=== PATIENT | female | born 1985 ===

== ENCOUNTER 2016-11-15 08:49 | Inpatient (IN) | payer OTHER ==
[2016-11-15] MEDS ORDERED: Sodium Citrate/Citric Acid 15 ml Sol PO ONE (09:54)
--- NOTE | 2016-11-15 10:15 | OBADHP ---
Datetime: 11/15/2016 10:01 IP Chief Complaint Other: 31 P2 at 37 weeks Gestation with vaginal bleeding . No uterine contraction s. NoLOF. Statest good movement. 2 previous C/Sections scheduled for Repeat C/Sections BTL on . GDMA1. IP Adm Impression Other: Vaginal bleeding Admit Comment, IP Provider: 37 weeks with Vaginal bleeding, 2 Previous C/Sections. Admit for Repeat C/Section and BTL. Patient had full breakfast at 0730. Reassuring fatal status. Will perform C/Sectio n at about 1330 as per Anesthiologist. Addendum: H7P same as per WILBER. Pelvic Type - PN: Adequate Extremities - PN: Normal Abdomen - PN: Normal Back - PN: Normal Breast - PN: Not Done Lungs - PN: Normal Heart - PN: Normal Thyroid - PN: Not Done Neurologic - PN: Not Done HEENT - PN: Not Done General - PN: Normal Weight - Estimated: 3200 Presentation-Admit: Vertex IP Fetus A Comments: Minimal vaginal bleeding on SSE. FHR - Baseline A Provider: 150 Membranes, Provider: Intact Gestation - Est Wks by US: 37.0 Vital Signs Provider: Reviewed; Within Normal Limits IP Chief Complaint: Vaginal bleeding NICHD Variability Prov Fetus A: Moderate 6-25bpm NICHD Accel Fetus A IP Provider: 15X15 FHR Category Provider Fetus A: Category I NICHD Decel Fetus A IP Provider: None Dilatation, Provider: 0 Effacement, Provider: 0 Station, Provider: -2 Genitourinary Exam: Normal DTRs - PN: Normal EGA AdmitDate IP: 37.2 IP Adm Impression: Term, intrauterine ; No Active Labor; Intact Membranes IP Admit Plan: Admit to unit; Initiate Section protocol
[2016-11-15 10:30] LABS: BASO % 0.2 % (0.0-2.0); EOS # 0.1 K/uL (0.0-0.7); EOS % 0.8 % (0.0-4.0); HEMATOCRIT 37.9 % (34.0-47.0); LYMPH # 1.4 K/uL (1.0-4.3); MEAN CELL VOLUME 87.4 fL (81.0-99.0); MEAN CORPUSCULAR HEMOGLOBIN 28.8 pg (27.0-31.0); MEAN CORPUSCULAR HGB CONC 32.9 g/dL (33.0-37.0); MEAN PLATELET VOLUME 9.7 fL (7.2-11.7); MONO # 0.5 K/uL (0.0-0.8); MONO % 5.9 % (0.0-10.0); RED CELL DISTRIBUTION WIDTH 14.1 % (11.5-14.5); WHITE BLOOD COUNT 7.7 K/uL (4.8-10.8)
[2016-11-15] MEDS ORDERED: Morphine 1 mg/ml preservative-free Inj(Duramorph) ONE (10:34)
[2016-11-15 10:45] LABS: GFR AFRICAN-AMERICAN > 60
[2016-11-15 10:46] LABS: GLUCOSE,RANDOM 102 mg/dL (65-105)
[2016-11-15 10:52] LABS: URINE BACTERIA RARE (<OCC); URINE BILIRUBIN NEGATIVE (NEGATIVE); URINE BLOOD 2+ (NEGATIVE); URINE COLOR Yellow (YELLOW); URINE GLUCOSE (UA) NORMAL (Normal); URINE KETONE NEGATIVE (NEGATIVE); URINE LEUKOCYTE ESTERASE NEG Leu/uL (Negative); URINE PROTEIN NEGATIVE (NEGATIVE); URINE UROBILINOGEN NORMAL mg/dL (0.2-1.0); WBC URINE 2 /hpf (0-5)
[2016-11-15 10:59] LABS: RBC URINE 10 /hpf (0-3)
[2016-11-15] MEDS ORDERED: cefOXitin IV 2 gm in Dextrose 50 ML IVPB ONE ×2 (11:19→13:00)
[2016-11-15] MEDS ORDERED: Sodium Citrate/Citric Acid 15 ml Sol ONE (11:20)
[2016-11-15] MEDS: Lactated Ringer's 1,000 ML IV SCH ×2 (11:21→11:22)
[2016-11-15] MEDS ORDERED: ePHEDrine 50 mg/ml Inj ONE (12:20)
[2016-11-15] MEDS ORDERED: DiphenhydrAMINE 50 mg/ml Inj ONE (13:14)
--- NOTE | 2016-11-15 13:23 | OBDS ---
DELIVERY PERSONNEL Delivery Doctor: Marta Shirley MD Scrub Nurse: Francine Santa OBT Baggage Inspector: Rhoda Flores RN Anesthesiologist: Jeovany Bai MD MATERNAL INFORMATION Delivery Anesthesia: Spinal Placenta Cultured: Yes Maternal Complications: None Provider Comments: Repeat Low Transverse C/Section with BTL with delivery of a viable girl, 's 05/01. LABOR SUMMARY EDC: 12/04/2016 00:00 No. Babies in Womb: 1 Attempted: No Labor Anesthesia: None LABOR INFORMATION Oxytocin: N/A Group B Beta Strep: Negative Antibiotics # of Doses: 0 Steroids Given: None Reason Steroids Not Administered: Not Applicable MEMBRANES Membranes Rupture Method: Artificial Rupture of Membranes: 11/15/2016 12:24 Length of Rupture (hrs): 0.02 Amniotic Fluid Color: Clear Amniotic Fluid Amount: None Amniotic Fluid Odor: None STAGES OF LABOR Stage 3 hrs: 0 Stage 3 min: 2 CSECTION DELIVERY Primary Indication: Repeat Elective Other Primary Indication: vaginal bleeding Secondary Indication: Other Other Secondary Indication: tach CSection Urgency: Elective CSection Incidence: Repeat Labor: N/A Elective: Elective CSection Incision: Lower Uterine Transverse Other Sterilization Procedure: cut tubes and sent to lab BABY A INFORMATION Infant Delivery Date/Time: 11/15/2016 12:25 Method of Delivery: Born in Route : No : N/A Forceps: N/A Vacuum Extraction: N/A Shoulder Dystocia : No SHOULDER DYSTOCIA BABY A Infant Delivery Date/Time: 11/15/2016 12:25 PRESENTATION/POSITION BABY A Presentation: Cephalic Cephalic Presentation: Vertex Breech Presentation: N/A PLACENTA INFORMATION BABY A Placenta Delivery Time : 11/15/2016 12:27 Placenta Method of Delivery: Manual Removal Placenta Status: Delivered SCORES BABY A Heart Rate 1 min: >100 bpm Resp Effort 1 min: Good Cry Reflex Irritability 1 min: Cough or Sneeze or Pulls Away Muscle Tone 1 min: Active Motion Color 1 min: Body [place], Extremities Blue Resuscitation Effort 1 min: Tactile Stimulation SCORE 1 MIN: 9 Heart Rate 5 min: >100 bpm Resp Effort 5 min: Good Cry Reflex Irritability 5 min: Cough or Sneeze or Pulls Away Muscle Tone 5 min: Active Motion Color 5 min: Body [place], Extremities Blue Resuscitation Effort 5 min: Tactile Stimulation SCORE 5 MIN: 9 INFORMATION BABY A Gestational Age at Delivery: 38.3 Gestational Status: Term Infant Outcome : Liveborn Condition : Stable Sex: Female IDENTIFICATION/MEDS BABY A ID Band Number: [id number] ID Band Location: Right Leg; Right Arm Sensor Applied: Yes Sensor Number: [id number] Sensor Location : Cord Clamp WEIGHT/LENGTH BABY A Infant Birthweight (gms): 3650 Infant Weight (lb): 8 Weight (oz): 1 Length Inches: 20.00 Length cms: 50.8 CORD INFORMATION BABY A No. Cord Vessels: 3 Nuchal Cord : N/A Cord Blood Taken: Yes Infant Suction: Mouth; Nose
[2016-11-16] MEDS: Oxycodone/Acetaminophen 5/325 mg Tab PO PRN ×5 (04:15→23:33)
--- NOTE | 2016-11-16 08:21 | OP ---
PROCEDURE DATE: 11/15/2016 PREOPERATIVE DIAGNOSES: 37 weeks gestation, gestational diabetes, 2 previous sections and vaginal bleeding and also sterilization. POSTOPERATIVE DIAGNOSES: 37 weeks gestation, gestational diabetes, 2 previous sections and vaginal bleeding and also sterilization. PROCEDURE: Repeat low transverse section and bilateral tubal ligation using the Chase's procedure. SURGEON: Mohinder Shirley MD MAP PLOTTER: Chaz De Souza MD, who was needed for retraction and was present throughout the entire procedure. ANESTHESIA: Spinal given by Dr. Bah. FINDINGS: A viable girl delivered at 12:25. scores were 9 at 1 minute and 9 at 5 minutes. The weight was 3650 grams. The ovaries, fallopian tubes, and uterus were all normal. DESCRIPTION OF PROCEDURE: Under adequate spinal anesthesia, the abdomen was prepped and draped in the usual sterile fashion. Going through a previous Pfannenstiel scar, the skin was incised and carried through the subcutaneous tissues to the fascia. The fascia was divided transversely and dissected off the underlying rectus muscle. The rectus muscle was in the midline. The parietal peritoneum was entered sharply. The abdomen was entered. The bladder was retracted using the [place] retractor. The vesicouterine peritoneal fold was incised and dissected off the lower uterine segment. The lower segment was incised with a scalpel and extended with bandage scissors. The fetus was delivered cephalic. The cord was clamped, transected, and the baby handed over to the apartment groundskeeper in attendance. The placenta was delivered spontaneously. The uterus was then delivered into the incision. The uterine cavity was grasped with T clamps for hemostasis. The uterine cavity was then approximated in 2 layers with 0 Vicryl suture. Hemostasis was achieved. Attention was turned to the fallopian tubes. First, the right fallopian tube was identified and followed to the fimbriated end. The midsegment was elevated with a Reba clamp and doubly ligated with 2-0 plain catgut. The segment between the ligature was excised and submitted to pathology. The same procedure was repeated on the left fallopian tube. The uterus was then returned into the abdominal cavity. The abdomen was copiously irrigated with saline. Again, hemostasis was noted. The abdomen was then closed in layers with 0 chromic catgut to the peritoneum and 0 chromic catgut to the rectus muscle in the midline. The rectus fascia was approximated with 0 Vicryl suture in a continuous fashion. The subcutaneous tissues were approximated with 2-0 plain catgut. The skin was closed using 4-0 Monocryl subcuticular suture. The estimated blood loss was about 600 mL. Fluids received were 1500 mL crystallized. The urine output was about 300, clear. The sponge, instrument and needle counts were correct x 3. The specimen was segments of both fallopian tubes to pathology. The patient was transferred from the operating room to the recovery room in good condition. Mohinder Shirley MD cc: [id number] TT: 11/16/2016 08:20:51 en MTDD
[2016-11-16 08:24] LABS: BASO % 0.2 % (0.0-2.0); EOS % 0.2 % (0.0-4.0); HEMATOCRIT 37.1 % (34.0-47.0); LYMPH # 1.2 K/uL (1.0-4.3); MEAN CELL VOLUME 88.5 fL (81.0-99.0); MEAN CORPUSCULAR HEMOGLOBIN 28.7 pg (27.0-31.0); MEAN CORPUSCULAR HGB CONC 32.4 g/dL (33.0-37.0); MEAN PLATELET VOLUME 9.5 fL (7.2-11.7); MONO # 0.5 K/uL (0.0-0.8); MONO % 3.5 % (0.0-10.0); PLATELET COUNT 272 K/uL (130-400); RED CELL DISTRIBUTION WIDTH 14.7 % (11.5-14.5)
[2016-11-16 08:43] LABS: WHITE BLOOD COUNT 15.6 K/uL (4.8-10.8)
[2016-11-16 09:25] LABS: EOSINOPHIL 1 % (0-4); NEUTROPHIL 89 % (50-75); TOTAL CELLS COUNTED 100
[2016-11-16] MEDS ORDERED: Bisacodyl 5mg EC Tab PO ONE (14:00)
--- NOTE | 2016-11-16 18:37 | OBPPN ---
Datetime: 11/16/2016 11:40 PP Pain Prov: Within normal limits PP Nausea Prov: Denies PP Flatus Prov: No PP BM Prov: No PP Breasts Prov: Normal PP Heart Prov: Normal PP Lungs Prov: Normal PP Abdomen/Uterus Prov: Normal PP Lochia Prov: Normal PP Vulva/Perineum Prov: Not Done PP CVA Tenderness Prov: Normal PP Extremities Prov: Normal PP C/S Incision Prov: Normal PP Progress Prov: Not Applicable PP Comments Phys Exam Prov: Skin: warm, dry, intact HEENT: full ROM Back: (+) point tenderness over right trapezius muscle and over right scapular muscle. Breasts: symmetric; no masses Abdomen: Soft, non distended. (+) ABS. fundus firm, mobile, mild and appropriately tender, 1 FB be low umbilicus. Incision with subcuticular closure - clean, dry and intact. Mild to moderate lochia ru bra Extremities: no calf tenderness; 1+ ankle and pedal edema All other systems reviewed - per HPI PP Impression Prov: Normal progression PP Plan Prov: Continue present management PP Progress Note Prov: Patient received sitting up in bed, room 459. C/O right shoulder pain, since delivery; pain scale 7/10 - minimal relief with percocet. Denies nausea, vomiting; ambulating and voi ding without difficulty. Not at this time; considering starting when she gets home. (+) incisional pain, pain scale 8/01 - again, minimal arelief with percocet. Not yet taken motrin P.E.: as above. WD in NAD. Awake, alert, oriented to time, person and place. Pleasant and cooperat bernice. present - POD#1 H/H 12.0/37.1 Assessment: POD#1, 31 y.o. P3, S/P repeat LTCS with BTL. Afebrile, vital signs stable. Right shoul lola pain - most likely musculoskeletal in origin; as well as probable diaphragmatic irritation from a ir due to open procedure. Pateitn counseled as follows: 1) warm shower, now, followed by cold johnny s TID, 30 minutes each; 2) overlap motrin with percocet. Patient encouraged to ambulate in the [facility]. Patient is clinically stable. Plan: 1) as above. Vital Signs Provider PP: Reviewed; Within Normal Limits
[2016-11-17] MEDS: Oxycodone/Acetaminophen 5/325 mg Tab PO PRN ×4 (03:16→19:34)
--- NOTE | 2016-11-17 09:08 | OBPPN ---
Datetime: 11/17/2016 09:05 PP Pain Prov: Within normal limits PP Nausea Prov: Denies PP Flatus Prov: Yes PP BM Prov: No PP Heart Prov: Normal PP Lungs Prov: Normal PP Abdomen/Uterus Prov: Normal PP Lochia Prov: Normal PP Vulva/Perineum Prov: Normal PP CVA Tenderness Prov: Normal PP Extremities Prov: Normal PP C/S Incision Prov: Normal PP Progress Prov: Normal PP Impression Prov: Normal progression PP Plan Prov: Continue present management PP Progress Note Prov: S-patient reports that he rpain is well controlled.denies nausea, vomiting, h eadache, chest pain, shortness of breath, numbness or tingling in hands and feet O-VSS Afebrile Fundus firm and below umbilcius Inicsion clean dry and intact extremities no calf tenderness A/P Patient s/p vaginal delivery POD 2doing well -continue routine post op care -anticipate dischareg tomorrow -follow up in clinic in 6 weeks Vital Signs Provider PP: Reviewed; Within Normal Limits
[2016-11-18] MEDS: Oxycodone/Acetaminophen 5/325 mg Tab PO PRN ×2 (03:37→09:53)
--- NOTE | 2016-11-18 07:30 | CP.PCM.DIS ---
Provider - Provider Date of Admission: 11/15/16 09:49 Attending physician: Mohinder Shirley MD Time Spent in preparation of Discharge (in minutes): 50 Diagnosis - Discharge Diagnosis (1) Delivered by section Status: Acute Hospital Course - Lab Results Lab Results: Most Recent Lab Values WBC 15.6 K/uL (4.8-10.8) H D 11/16/16 08:00 RBC 4.19 Mil/uL (3.80-5.20) 11/16/16 08:00 Hgb 12.0 g/dL (11.0-16.0) 11/16/16 08:00 Hct 37.1 % (34.0-47.0) 11/16/16 08:00 MCV 88.5 fL (81.0-99.0) 11/16/16 08:00 MCH 28.7 pg (27.0-31.0) 11/16/16 08:00 MCHC 32.4 g/dL (33.0-37.0) L 11/16/16 08:00 RDW 14.7 % (11.5-14.5) H 11/16/16 08:00 Plt Count 272 K/uL (130-400) 11/16/16 08:00 MPV 9.5 fL (7.2-11.7) 11/16/16 08:00 Neut % (Auto) 88.1 % (50.0-75.0) H 11/16/16 08:00 Lymph % (Auto) 8.0 % (20.0-40.0) L 11/16/16 08:00 [place] % (Auto) 3.5 % (0.0-10.0) 11/16/16 08:00 Eos % (Auto) 0.2 % (0.0-4.0) 11/16/16 08:00 Baso % (Auto) 0.2 % (0.0-2.0) 11/16/16 08:00 Neut # 13.7 K/uL (1.8-7.0) H 11/16/16 08:00 Lymph # 1.2 K/uL (1.0-4.3) 11/16/16 08:00 [place] # 0.5 K/uL (0.0-0.8) 11/16/16 08:00 Eos # 0.0 K/uL (0.0-0.7) 11/16/16 08:00 Baso # 0.0 K/uL (0.0-0.2) 11/16/16 08:00 Neutrophils % (Manual) 89 % (50-75) H 11/16/16 08:00 Band Neutrophils % 2 % (0-2) 11/16/16 08:00 Lymphocytes % (Manual) 6 % (20-40) L 11/16/16 08:00 Monocytes % (Manual) 2 % (0-10) 11/16/16 08:00 Eosinophils % (Manual) 1 % (0-4) 11/16/16 08:00 Platelet Estimate Normal (NORMAL) 11/16/16 08:00 RBC Morphology Normal 11/16/16 08:00 Creatinine 0.4 MG/DL (0.7-1.2) L 11/15/16 10:21 Est GFR ( Amer) > 60 11/15/16 10:21 Est GFR (Non-Af Amer) > 60 11/15/16 10:21 POC Glucose (mg/dL) 98 mg/dL (65-110) 11/16/16 07:13 Random Glucose 102 mg/dL (65-105) 11/15/16 10:21 Urine Color Yellow (YELLOW) 11/15/16 10:21 Urine Clarity Hazy (Clear) 11/15/16 10:21 Urine pH 7.0 (5.0-8.0) 11/15/16 10:21 Ur Specific [place] 1.003 (1.003-1.030) 11/15/16 10:21 Urine Protein Negative mg/dL (NEGATIVE) 11/15/16 10:21 Urine Glucose (UA) Normal mg/dL (Normal) 11/15/16 10:21 Urine Ketones Negative mg/dL (NEGATIVE) 11/15/16 10:21 Urine Blood 2+ (NEGATIVE) H 11/15/16 10:21 Urine Nitrate Negative (NEGATIVE) 11/15/16 10:21 Urine Bilirubin Negative (NEGATIVE) 11/15/16 10:21 Urine Urobilinogen Normal mg/dL (0.2-1.0) 11/15/16 10:21 Ur Leukocyte Esterase Neg Sally/uL (Negative) 03/26/17 10:21 Urine WBC (Auto) 2 /hpf (0-5) 11/15/16 10:21 Urine RBC (Auto) 10 /hpf (0-3) H 11/15/16 10:21 Ur Squamous Epith Cells 8 /hpf (0-5) H 11/15/16 10:21 Urine Bacteria Rare (<OCC) 11/15/16 10:21 RPR Nonreactive (NONREACTIVE) 11/15/16 10:21 Blood Type O POSITIVE 11/15/16 10:21 Blood Type Confirm O POSITIVE 11/15/16 10:21 Antibody Screen Negative 11/15/16 10:21 - Hospital Course Hospital Course: This patient is a female who wanted a repeat . She underwent a non -complicated which she has tolerated well. The patient will need to visit the OBGYN clinic in 2 weeks She will need to abstain from having sex for 6 weeks She was prescribed percocet Q6H for pain and Ibuprofen Q8H as well. She was advised of the risks of a which can include infection and proper ways to wash herself and maintain her wound. There were no signs of dehiscence or pus at the wound site on delivery and patient was relatively pain free, walking around, and passing gas. The patient is stable for discharge as per Dr. Billy. Dr. Dionte Zapata PGY1 OBGYN Service Discharge Exam - Head Exam Head Exam: ATRAUMATIC - Eye Exam Eye Exam: EOMI, Normal appearance - ENT Exam ENT Exam: Mucous Membranes Moist - Neck Exam Neck exam: Full Rom - Respiratory Exam Respiratory Exam: Clear to PA & Lateral, NORMAL BREATHING PATTERN. absent: Rales, Rhonchi, Wheezes - Cardiovascular Exam Cardiovascular Exam: REGULAR RHYTHM, +S1, +S2 - GI/Abdominal Exam GI & Abdominal Exam: Normal Bowel Sounds, Soft. absent: Tenderness Additional comments: Wound is clean dry and intact; subreticular closure was performed; no signs of dehiscence pus or erythema - Rectal Exam Rectal Exam: Deferred - Extremities Exam Extremities exam: full ROM - Back Exam Back exam: absent: CVA tenderness (L), CVA tenderness (R) - Neurological Exam Neurological exam: Alert, CN II-XII Intact, Normal Gait, Oriented x3, Reflexes Normal - Psychiatric Exam Psychiatric exam: Normal Affect, Normal Mood - Skin Skin Exam: Warm Discharge Plan - Discharge Medications Prescriptions: Ibuprofen [Motrin Tab] 800 mg PO Q8H PRN #40 tab PRN Reason: Pain/Cramping oxyCODONE/Acetaminophen [Percocet 5/325 mg Tab] 1 ea PO Q6H PRN #30 tab PRN Reason: Pain, Severe (8-10) - Follow Up Plan Patient education suggested?: Yes Additional Instructions: 1) Please visit the clinic in 2 weeks for OBGYN follow up 2) No sex for 6 weeks 3) If you have pain, please take the ibuprofen up to 3 times a day, or the percocet every 6 hours. Do not take more than this 4) Congratulations on your new baby! Best of luck. It was a pleasure taking care of you.
--- NOTE | 2016-11-18 07:31 | OBDCSUM ---
Datetime: 11/18/2016 07:30 Discharged to, Provider: Home Follow up at, Provider: 2week Disch Instr Activity: Normal activity Disch Instr Diet: Regular Discharge Diagnosis, Provider: Term Delivered Follow up in weeks, Provider: clinic Disch Activity Restrictions: No exercising; No lifting; No driving; Minimize walking; Minimize stair -climbing; No sexual activity; Nothing in vagina - [place], tampons, douche Discharge Comment, Provider: dc home no sex percocet prn f/u in clinic in 2week Discharge Diagnosis Prov Other: s/p c/s
--- NOTE | 2016-11-18 07:31 | OBPPN ---
Datetime: 11/18/2016 07:28 PP Pain Prov: Within normal limits PP Nausea Prov: Denies PP Flatus Prov: Yes PP Abdomen/Uterus Prov: Normal PP Lochia Prov: Normal PP Extremities Prov: Normal PP C/S Incision Prov: Normal PP Comments Phys Exam Prov: fudus below umblicis ext no edema,no calf ten incision clean and dry PP Impression Prov: Normal progression PP Plan Prov: Discharge PP Progress Note Prov: pt was seen at bed side, pain under control, no n/v, tolerating deit, voiding ,min lochia, flatus+ podz#3s/p c/s dc home no sex percocet prn f/u in clinic in 2week Vital Signs Provider PP: Reviewed; Within Normal Limits
[2016-11-18 08:40] VITALS: BP 113/73; PULSE 93; RESP 18; TEMP 98.7; O2SAT 98
== END 2016-11-18 11:50 | disposition home or self-care (01) ==
LOC: C.EROB 08:49 → C.4D 09:49 → C.4M 16:01
PROVIDERS: ADMIT Obstetrics & Gynecology; ATTEND Obstetrics & Gynecology
PROC: 10D00Z1 Extraction of Products of Conception, Low, Open Approach (ICD-10-PCS; principal; 2016-11-15)
PROC: 0UT70ZZ Resection of Bilateral Fallopian Tubes, Open Approach (ICD-10-PCS; 2016-11-15)
DX: O46.8X3 Other antepartum hemorrhage, third trimester (principal); O24.420 Gestational diabetes mellitus in childbirth, diet controlled; O34.211 Maternal care for low transverse scar from previous cesarean delivery; Z30.2 Encounter for sterilization; Z3A.37 37 weeks gestation of pregnancy; Z37.0 Single live birth